=== PATIENT | male | born 1970 | race Hispanic/Latino ===

== ENCOUNTER 2023-06-22 12:05 | Inpatient (IN) | payer MEDICARE, OTHER ==
[~2023-06-22] VITALS: Ht 165.1 cm; Wt 88.0 kg
[2023-06-22] VITALS (21 sets, daily range): BP systolic 129–157; BP diastolic 57–69; PULSE 65–85; RESP 10–22; TEMP 97.8–98; O2SAT 96–100
[2023-06-22] MEDS ORDERED: ALBUTEROL/IPRATROPIUM 3 ML NEB NEB ONE (12:30)
[2023-06-22 13:18] LABS: BASOPHILS # (AUTO) 0.1 (0.0-0.1); BASOPHILS % 1.1 % (0.0-1.0); EOSINOPHILS # (AUTO) 0.2 (0.0-0.4); EOSINOPHILS % 2.7 % (0.0-6.0); HEMATOCRIT 29.2 % (38.2-49.6); LYMPHOCYTES # (AUTO) 0.9 (1.0-3.2); LYMPHOCYTES % 11.8 % (18.0-39.1); MEAN CORPUSCULAR HEMOGLOBIN 29.2 pg (28-32); MEAN CORPUSCULAR HGB CONC 30.8 g/dL (31-35); MEAN CORPUSCULAR VOLUME 94.8 fL (81-99); MONOCYTES # (AUTO) 0.5 (0.2-0.8); MONOCYTES % 7.1 % (4.4-11.3); NEUTROPHILS # (AUTO) 5.8 (2.1-6.9); NEUTROPHILS % 76.8 % (38.7-80.0); PLATELET COUNT 295 x10e3/uL (140-360); RED BLOOD COUNT 3.08 x10e6/uL (4.3-5.7); RED CELL DISTRIBUTION WIDTH 14.5 % (11.7-14.4); WHITE BLOOD COUNT 7.48 x10e3/uL (4.8-10.8)
[2023-06-22 13:36] LABS: ALBUMIN 2.5 g/dL (3.5-5.0); ALBUMIN/GLOBULIN RATIO 0.6 (0.8-2.0); ANION GAP 14.6 mmol/L (8-16); BILIRUBIN,TOTAL 0.4 mg/dL (0.2-1.2); CALCIUM 8.3 mg/dL (8.4-10.2); CREATININE, SERUM 2.96 mg/dL (0.72-1.25); TOTAL PROTEIN 6.5 g/dL (6.5-8.1)
[2023-06-22 13:37] LABS: INR 0.99; PARTIAL THROMBOPLASTIN TIME 33.2 seconds (23.8-35.5); PROTHROMBIN TIME 13.3 seconds (11.9-14.5)
[2023-06-22 13:39] LABS: POTASSIUM 5.6 mmol/L (3.5-5.1)
[2023-06-22 15:45] LABS: BILIRUBIN,URINE NEGATIVE (NEGATIVE); CLARITY,URINE HAZY (CLEAR); COLOR,URINE YELLOW (YELLOW); GLUCOSE, URINE NEGATIVE (NEGATIVE); KETONES,URINE NEGATIVE (NEGATIVE); LEUKOCYTE ESTERASE ,URINE NEGATIVE (NEGATIVE); NITRITE,URINE NEGATIVE (NEGATIVE); PH,URINE 5.5 (5 - 7); PROTEIN,URINE DIPSTICK >=300 (NEGATIVE); URINE UROBILINOGEN 0.2 mg/dL (0.2 - 1)
[2023-06-22 16:14] LABS: BACTERIA,URINE FEW /HPF; RBC,URINE 0-5 /HPF (0-5); WBC,URINE (MAN) 0-5 /HPF (0-5)
[2023-06-22 16:15] LABS: EPITHELIAL CELLS,URINE RARE /LPF
[2023-06-22] MEDS ORDERED: FUROSEMIDE INJ 10 MG/ML 4 ML VIAL IV SCH (16:15)
[2023-06-22] MEDS ORDERED: SODIUM CHLORIDE FLUSH 10 ML SYR INJ PRN (16:15)
[2023-06-22] MEDS ORDERED: ONDANSETRON HCL INJ 2MG/ML 2ML 2 MG/ML VIAL IV PRN ×2 (16:15→16:30)
[2023-06-22] MEDS ORDERED: DEXTROSE 50% SYRINGE 50 ML IV STA (16:18)
[2023-06-22] MEDS ORDERED: ALBUTEROL SULF 0.083% NEB SOLN 3 ML NEB NEB STA (16:18)
[2023-06-22] MEDS ORDERED: POLYETHYLENE GLYCOL 3350 17 GM PACK PO PRN (16:30)
[2023-06-22] MEDS ORDERED: INSULIN REGULAR, HUMAN 100 UNIT/1 ML IV ONE (16:30)
[2023-06-22] MEDS ORDERED: CALCIUM GLUC 1 G/50 ML NACL 100 ML IV ONE (16:30)
[2023-06-22] MEDS ORDERED: SODIUM BICARBONATE 8.4% INJ 50 ML SYR IV ONE (16:45)
[2023-06-22] MEDS ORDERED: SOD POLYSTYRENE SULFONATE SUSP 15 GM/60 ML BTL PO ONE (17:30)
[2023-06-22] MEDS: DOCUSATE SODIUM 100 MG CAP PO SCH (18:55)
[2023-06-22] MEDS: ACETAMINOPHEN 325 MG TAB PO PRN (18:56)
[2023-06-22] MEDS ORDERED: ACETAMINOPHEN325 M1 PO (20:38)
[2023-06-22] MEDS ORDERED: MIRALAX17 GM PO (21:00)
[2023-06-22] MEDS ORDERED: PLAVIX75 MG PO (21:00)
[2023-06-22] MEDS ORDERED: BENADRYL ITCH28.3 GM TOP (21:00)
[2023-06-22] MEDS ORDERED: LASIX40 MG PO (21:00)
[2023-06-22] MEDS ORDERED: DOXYCYCLINE HY100 MG PO (21:00)
[2023-06-22] MEDS ORDERED: [UNRECOGNIZED DRUG - OTHER] (21:00)
[2023-06-22] MEDS ORDERED: lidocaine patch TOP (21:00)
[2023-06-22] MEDS ORDERED: APLISOL5 TUB UNIT (21:00)
[2023-06-22] MEDS ORDERED: LACTULOSE20 GM/30 M PO (21:00)
[2023-06-22] MEDS ORDERED: ASPIRIN81 MG PO (21:00)
[2023-06-22] MEDS ORDERED: DOCUSATE SODIU100 MG PO (21:00)
[2023-06-22] MEDS ORDERED: AMLODIPINE BESY10 MG PO (21:00)
[2023-06-22] MEDS ORDERED: HUMALOG100 UNIT/1 (21:00)
[2023-06-22] MEDS ORDERED: COQ-10100 MG PO (21:00)
[2023-06-22] MEDS ORDERED: FERROUS FUMARA324 MG PO (21:00)
[2023-06-22] MEDS ORDERED: PENTOXIFYLLINE400 MG PO (21:00)
[2023-06-22] MEDS ORDERED: HUMULIN N100 UNIT/2 SQ (21:00)
[2023-06-22] MEDS ORDERED: CARVEDILOL12.5 MG PO (21:00)
[2023-06-22] MEDS ORDERED: DECUBI VITE CA1 EACH PO (21:00)
[2023-06-22] MEDS ORDERED: ATORVASTATIN CA10 MG PO (21:00)
[2023-06-22] MEDS ORDERED: DEXTROSE 50% SYRINGE 50 ML IV PRN (21:45)
[2023-06-22] MEDS: HEPARIN SOD (PORCINE) 5,000 UNIT/ML VIAL SC SCH (21:59)
[2023-06-22] MEDS: FUROSEMIDE INJ 10 MG/ML 4 ML VIAL IV SCH (22:01)
[2023-06-22] MEDS: INSULIN REGULAR, HUMAN 100 UNIT/1 ML SQ SCH (22:02)
[2023-06-22] MEDS ORDERED: DIPHENHYDRAMINE HCL 30 GM TUBE TOP PRN (23:45)
[2023-06-23] VITALS (42 sets, daily range): BP systolic 94–165; BP diastolic 48–111; PULSE 63–98; RESP 12–24; TEMP 97.9–98.3; O2SAT 87–100
[2023-06-23 06:35] LABS: BASOPHILS # (AUTO) 0.1 (0.0-0.1); BASOPHILS % 0.9 % (0.0-1.0); EOSINOPHILS # (AUTO) 0.2 (0.0-0.4); EOSINOPHILS % 3.6 % (0.0-6.0); HEMATOCRIT 28.4 % (38.2-49.6); HEMOGLOBIN 8.9 g/dL (14.0-18.0); LYMPHOCYTES % 16.7 % (18.0-39.1); MEAN CORPUSCULAR HEMOGLOBIN 29.1 pg (28-32); MEAN CORPUSCULAR HGB CONC 31.3 g/dL (31-35); MEAN CORPUSCULAR VOLUME 92.8 fL (81-99); MONOCYTES # (AUTO) 0.5 (0.2-0.8); MONOCYTES % 9.3 % (4.4-11.3); NEUTROPHILS % 69.2 % (38.7-80.0); PLATELET COUNT 269 x10e3/uL (140-360); RED BLOOD COUNT 3.06 x10e6/uL (4.3-5.7); RED CELL DISTRIBUTION WIDTH 14.3 % (11.7-14.4)
[2023-06-23 07:06] LABS: ALBUMIN 2.4 g/dL (3.5-5.0); ALBUMIN/GLOBULIN RATIO 0.6 (0.8-2.0); ANION GAP 14.7 mmol/L (8-16); BILIRUBIN,TOTAL 0.3 mg/dL (0.2-1.2); CALCIUM 8.4 mg/dL (8.4-10.2); CREATININE, SERUM 2.75 mg/dL (0.72-1.25); POTASSIUM 4.7 mmol/L (3.5-5.1); TOTAL PROTEIN 6.3 g/dL (6.5-8.1)
[2023-06-23 07:21] LABS: CHOL/HDL RATIO 4.5 (3.9-4.7); MAGNESIUM 1.7 MG/DL (1.3-2.1); PHOSPHORUS 5.6 MG/DL (2.3-4.7)
[2023-06-23] MEDS: INSULIN REGULAR, HUMAN 100 UNIT/1 ML SQ SCH ×4 (07:30→20:41)
[2023-06-23 07:42] LABS: THYROID STIMULATING HORMONE 2.246 uIU/mL (0.350-4.940)
[2023-06-23] MEDS: FUROSEMIDE INJ 10 MG/ML 4 ML VIAL IV SCH ×2 (08:42→20:31)
[2023-06-23] MEDS: HEPARIN SOD (PORCINE) 5,000 UNIT/ML VIAL SC SCH ×2 (08:43→21:35)
[2023-06-23] MEDS: LIDOCAINE 4% PATCH TP SCH (08:44)
[2023-06-23] MEDS: CLOPIDOGREL BISULFATE 75 MG TAB PO SCH (09:43)
[2023-06-23] MEDS: AMLODIPINE BESYLATE 5 MG TAB PO SCH (09:44)
[2023-06-23] MEDS: PENTOXIFYLLINE 400 MG TAB CR PO SCH ×2 (09:44→16:41)
[2023-06-23] MEDS: DOCUSATE SODIUM 100 MG CAP PO SCH ×2 (09:44→16:42)
[2023-06-23] MEDS: FOLIC ACID/CYANOCOB/PYRIDOXINE TAB PO SCH (09:44)
[2023-06-23] MEDS: ASPIRIN 81 MG CHEW TAB PO SCH (09:44)
[2023-06-23] MEDS: DOXYCYCLINE HYCLATE TABLET 100 MG TAB PO SCH ×2 (09:44→16:41)
[2023-06-23] MEDS: CARVEDILOL 12.5 MG TAB PO SCH ×2 (09:44→16:42)
[2023-06-23] MEDS: ASCORBIC ACID 500 MG TAB PO SCH ×2 (09:44→16:41)
[2023-06-23] MEDS: POLYETHYLENE GLYCOL 3350 17 GM PACK PO SCH (09:45)
[2023-06-23] MEDS ORDERED: ALBUTEROL/IPRATROPIUM 3 ML NEB NEB ONE (09:45)
[2023-06-23] MEDS ORDERED: ALBUTEROL/IPRATROPIUM 3 ML NEB NEB PRN (09:45)
[2023-06-23] MEDS: ACETAMINOPHEN 325 MG TAB PO PRN (09:45)
[2023-06-23] MEDS: LACTULOSE SYRUP 20 GM/30 ML UDC PO SCH ×2 (09:45→16:42)
[2023-06-23] MEDS: ATORVASTATIN 10 MG TAB PO SCH (20:31)
[2023-06-24] VITALS (33 sets, daily range): BP systolic 137–172; BP diastolic 56–77; PULSE 78–91; RESP 11–24; TEMP 98.3–99; O2SAT 99–100
[2023-06-24 06:32] LABS: BASOPHILS % 0.5 % (0.0-1.0); EOSINOPHILS # (AUTO) 0.2 (0.0-0.4); EOSINOPHILS % 3.5 % (0.0-6.0); HEMOGLOBIN 9.1 g/dL (14.0-18.0); LYMPHOCYTES % 16.6 % (18.0-39.1); MEAN CORPUSCULAR HEMOGLOBIN 29.2 pg (28-32); MEAN CORPUSCULAR HGB CONC 31.4 g/dL (31-35); MEAN CORPUSCULAR VOLUME 92.9 fL (81-99); MONOCYTES # (AUTO) 0.6 (0.2-0.8); NEUTROPHILS # (AUTO) 4.4 (2.1-6.9); NEUTROPHILS % 70.1 % (38.7-80.0); PLATELET COUNT 257 x10e3/uL (140-360); RED BLOOD COUNT 3.12 x10e6/uL (4.3-5.7); RED CELL DISTRIBUTION WIDTH 14.6 % (11.7-14.4); WHITE BLOOD COUNT 6.25 x10e3/uL (4.8-10.8)
[2023-06-24 07:04] LABS: ALBUMIN 2.3 g/dL (3.5-5.0); ALBUMIN/GLOBULIN RATIO 0.6 (0.8-2.0); ANION GAP 15.3 mmol/L (8-16); BILIRUBIN,TOTAL 0.2 mg/dL (0.2-1.2); CALCIUM 8.7 mg/dL (8.4-10.2); CREATININE, SERUM 2.81 mg/dL (0.72-1.25); POTASSIUM 4.3 mmol/L (3.5-5.1); TOTAL PROTEIN 6.2 g/dL (6.5-8.1)
[2023-06-24 07:16] LABS: FERRITIN 740.39 ng/mL (21.81-274.66)
[2023-06-24 07:29] LABS: FOLATE 11.1 ng/mL (7.0-15.4)
[2023-06-24] MEDS: INSULIN REGULAR, HUMAN 100 UNIT/1 ML SQ SCH ×4 (07:30→21:11)
[2023-06-24] MEDS: DOXYCYCLINE HYCLATE TABLET 100 MG TAB PO SCH ×2 (08:00→17:09)
[2023-06-24] MEDS: LACTULOSE SYRUP 20 GM/30 ML UDC PO SCH ×2 (08:00→16:06)
[2023-06-24] MEDS: DOCUSATE SODIUM 100 MG CAP PO SCH ×2 (08:00→16:07)
[2023-06-24] MEDS: ASPIRIN 81 MG CHEW TAB PO SCH (08:00)
[2023-06-24] MEDS: FUROSEMIDE INJ 10 MG/ML 4 ML VIAL IV SCH ×2 (08:00→21:09)
[2023-06-24] MEDS: LIDOCAINE 4% PATCH TP SCH (08:01)
[2023-06-24] MEDS: CARVEDILOL 12.5 MG TAB PO SCH ×2 (08:01→16:07)
[2023-06-24] MEDS: CLOPIDOGREL BISULFATE 75 MG TAB PO SCH (08:01)
[2023-06-24] MEDS: ASCORBIC ACID 500 MG TAB PO SCH ×2 (08:01→16:06)
[2023-06-24] MEDS: POLYETHYLENE GLYCOL 3350 17 GM PACK PO SCH (08:01)
[2023-06-24] MEDS: AMLODIPINE BESYLATE 5 MG TAB PO SCH (08:01)
[2023-06-24] MEDS: HEPARIN SOD (PORCINE) 5,000 UNIT/ML VIAL SC SCH ×2 (08:03→21:10)
[2023-06-24] MEDS: FOLIC ACID/CYANOCOB/PYRIDOXINE TAB PO SCH (08:25)
[2023-06-24] MEDS: PENTOXIFYLLINE 400 MG TAB CR PO SCH ×2 (08:25→16:06)
[2023-06-24] MEDS: HYDRALAZINE HCL 20 MG/ML VIAL IV PRN (13:35)
[2023-06-24] MEDS: EPOETIN ALFA-EPBX 10,000 UNIT/ML VIAL SC SCH (16:07)
[2023-06-24] MEDS: ATORVASTATIN 10 MG TAB PO SCH (21:09)
[2023-06-25] VITALS (19 sets, daily range): BP systolic 148–177; BP diastolic 57–75; PULSE 68–85; RESP 16–23; TEMP 97.8–98.8; O2SAT 98–100
[2023-06-25 06:12] LABS: BASOPHILS % 0.6 % (0.0-1.0); EOSINOPHILS # (AUTO) 0.3 (0.0-0.4); EOSINOPHILS % 4.3 % (0.0-6.0); HEMATOCRIT 29.2 % (38.2-49.6); HEMOGLOBIN 9.1 g/dL (14.0-18.0); LYMPHOCYTES # (AUTO) 1.2 (1.0-3.2); LYMPHOCYTES % 18.8 % (18.0-39.1); MEAN CORPUSCULAR HEMOGLOBIN 29.3 pg (28-32); MEAN CORPUSCULAR HGB CONC 31.2 g/dL (31-35); MEAN CORPUSCULAR VOLUME 93.9 fL (81-99); MONOCYTES # (AUTO) 0.5 (0.2-0.8); MONOCYTES % 8.2 % (4.4-11.3); NEUTROPHILS # (AUTO) 4.2 (2.1-6.9); NEUTROPHILS % 67.8 % (38.7-80.0); PLATELET COUNT 258 x10e3/uL (140-360); RED BLOOD COUNT 3.11 x10e6/uL (4.3-5.7); RED CELL DISTRIBUTION WIDTH 14.6 % (11.7-14.4); WHITE BLOOD COUNT 6.23 x10e3/uL (4.8-10.8)
[2023-06-25 06:23] LABS: ALBUMIN 2.2 g/dL (3.5-5.0); ALBUMIN/GLOBULIN RATIO 0.6 (0.8-2.0); ANION GAP 13.2 mmol/L (8-16); BILIRUBIN,TOTAL 0.3 mg/dL (0.2-1.2); CALCIUM 8.4 mg/dL (8.4-10.2); CREATININE, SERUM 2.86 mg/dL (0.72-1.25); POTASSIUM 4.2 mmol/L (3.5-5.1); TOTAL PROTEIN 6.2 g/dL (6.5-8.1)
[2023-06-25] MEDS: INSULIN REGULAR, HUMAN 100 UNIT/1 ML SQ SCH ×4 (08:23→21:07)
[2023-06-25] MEDS: HEPARIN SOD (PORCINE) 5,000 UNIT/ML VIAL SC SCH ×2 (08:24→21:05)
[2023-06-25] MEDS: ASPIRIN 81 MG CHEW TAB PO SCH (08:26)
[2023-06-25] MEDS: DOXYCYCLINE HYCLATE TABLET 100 MG TAB PO SCH ×2 (08:26→15:51)
[2023-06-25] MEDS: POLYETHYLENE GLYCOL 3350 17 GM PACK PO SCH (08:26)
[2023-06-25] MEDS: LIDOCAINE 4% PATCH TP SCH (08:26)
[2023-06-25] MEDS: AMLODIPINE BESYLATE 5 MG TAB PO SCH (08:26)
[2023-06-25] MEDS: LACTULOSE SYRUP 20 GM/30 ML UDC PO SCH ×2 (08:26→15:52)
[2023-06-25] MEDS: FOLIC ACID/CYANOCOB/PYRIDOXINE TAB PO SCH (08:26)
[2023-06-25] MEDS: CARVEDILOL 12.5 MG TAB PO SCH ×2 (08:27→15:52)
[2023-06-25] MEDS: DOCUSATE SODIUM 100 MG CAP PO SCH ×2 (08:27→15:51)
[2023-06-25] MEDS: CLOPIDOGREL BISULFATE 75 MG TAB PO SCH (08:27)
[2023-06-25] MEDS: PENTOXIFYLLINE 400 MG TAB CR PO SCH ×2 (08:27→15:54)
[2023-06-25] MEDS: ASCORBIC ACID 500 MG TAB PO SCH ×2 (08:27→15:51)
[2023-06-25] MEDS: FUROSEMIDE INJ 10 MG/ML 4 ML VIAL IV SCH ×2 (08:28→21:10)
[2023-06-25] MEDS: SODIUM FERRIC GLUCONATE COMPLX 125 MG in SODIUM CHLORIDE 0.9% 100 ML IV SCH (08:57)
[2023-06-25] MEDS: HYDRALAZINE HCL 20 MG/ML VIAL IV PRN (15:52)
[2023-06-25] MEDS: ATORVASTATIN 10 MG TAB PO SCH (21:11)
[2023-06-26] VITALS (12 sets, daily range): BP systolic 152–164; BP diastolic 59–72; PULSE 68–82; RESP 16–20; TEMP 98.2–99.1; O2SAT 97–100
[2023-06-26] MEDS: LACTULOSE SYRUP 20 GM/30 ML UDC PO SCH ×2 (09:53→17:21)
[2023-06-26] MEDS: POLYETHYLENE GLYCOL 3350 17 GM PACK PO SCH (09:53)
[2023-06-26] MEDS: DOXYCYCLINE HYCLATE TABLET 100 MG TAB PO SCH ×2 (09:53→17:21)
[2023-06-26] MEDS: CARVEDILOL 12.5 MG TAB PO SCH ×2 (09:53→17:21)
[2023-06-26] MEDS: ASCORBIC ACID 500 MG TAB PO SCH ×2 (09:54→17:21)
[2023-06-26] MEDS: LIDOCAINE 4% PATCH TP SCH (09:54)
[2023-06-26] MEDS: ASPIRIN 81 MG CHEW TAB PO SCH (09:54)
[2023-06-26] MEDS: AMLODIPINE BESYLATE 5 MG TAB PO SCH (09:54)
[2023-06-26] MEDS: FOLIC ACID/CYANOCOB/PYRIDOXINE TAB PO SCH (09:54)
[2023-06-26] MEDS: DOCUSATE SODIUM 100 MG CAP PO SCH ×2 (09:54→17:21)
[2023-06-26] MEDS: PENTOXIFYLLINE 400 MG TAB CR PO SCH ×2 (09:54→17:21)
[2023-06-26] MEDS: CLOPIDOGREL BISULFATE 75 MG TAB PO SCH (09:54)
[2023-06-26] MEDS: FUROSEMIDE INJ 10 MG/ML 4 ML VIAL IV SCH ×2 (09:57→20:42)
[2023-06-26 10:20] LABS: BASOPHILS % 0.4 % (0.0-1.0); EOSINOPHILS # (AUTO) 0.2 (0.0-0.4); HEMATOCRIT 30.3 % (38.2-49.6); HEMOGLOBIN 9.6 g/dL (14.0-18.0); LYMPHOCYTES % 18.1 % (18.0-39.1); MEAN CORPUSCULAR HEMOGLOBIN 29.3 pg (28-32); MEAN CORPUSCULAR HGB CONC 31.7 g/dL (31-35); MEAN CORPUSCULAR VOLUME 92.4 fL (81-99); MONOCYTES # (AUTO) 0.3 (0.2-0.8); MONOCYTES % 6.5 % (4.4-11.3); NEUTROPHILS # (AUTO) 3.7 (2.1-6.9); NEUTROPHILS % 70.8 % (38.7-80.0); PLATELET COUNT 233 x10e3/uL (140-360); RED BLOOD COUNT 3.28 x10e6/uL (4.3-5.7); RED CELL DISTRIBUTION WIDTH 14.3 % (11.7-14.4); WHITE BLOOD COUNT 5.25 x10e3/uL (4.8-10.8)
[2023-06-26] MEDS: HEPARIN SOD (PORCINE) 5,000 UNIT/ML VIAL SC SCH ×2 (10:21→21:12)
[2023-06-26] MEDS: INSULIN REGULAR, HUMAN 100 UNIT/1 ML SQ SCH ×4 (10:28→20:23)
[2023-06-26] MEDS ORDERED: SODIUM CHLORIDE 0.9% 250ML 250 ML ONE (10:35)
[2023-06-26] MEDS: SODIUM FERRIC GLUCONATE COMPLX 125 MG in SODIUM CHLORIDE 0.9% 100 ML IV SCH (10:38)
[2023-06-26 10:41] LABS: ANION GAP 14.2 mmol/L (8-16); CALCIUM 8.4 mg/dL (8.4-10.2); CREATININE, SERUM 2.74 mg/dL (0.72-1.25); POTASSIUM 4.2 mmol/L (3.5-5.1)
[2023-06-26] MEDS: HYDRALAZINE HCL 20 MG/ML VIAL IV PRN (14:48)
[2023-06-26] MEDS: ATORVASTATIN 10 MG TAB PO SCH (20:41)
[2023-06-27] VITALS (8 sets, daily range): BP systolic 141–182; BP diastolic 61–70; PULSE 74–84; RESP 16–18; TEMP 98–98.7; O2SAT 96–100
[2023-06-27 05:55] LABS: BASOPHILS # (AUTO) 0.1 (0.0-0.1); BASOPHILS % 1.1 % (0.0-1.0); EOSINOPHILS # (AUTO) 0.4 (0.0-0.4); EOSINOPHILS % 5.9 % (0.0-6.0); HEMATOCRIT 30.1 % (38.2-49.6); HEMOGLOBIN 9.3 g/dL (14.0-18.0); LYMPHOCYTES # (AUTO) 1.2 (1.0-3.2); LYMPHOCYTES % 19.4 % (18.0-39.1); MEAN CORPUSCULAR HEMOGLOBIN 29.1 pg (28-32); MEAN CORPUSCULAR HGB CONC 30.9 g/dL (31-35); MEAN CORPUSCULAR VOLUME 94.1 fL (81-99); MONOCYTES # (AUTO) 0.5 (0.2-0.8); MONOCYTES % 8.3 % (4.4-11.3); PLATELET COUNT 226 x10e3/uL (140-360); RED CELL DISTRIBUTION WIDTH 13.9 % (11.7-14.4); WHITE BLOOD COUNT 6.13 x10e3/uL (4.8-10.8)
[2023-06-27 06:15] LABS: CALCIUM 8.5 mg/dL (8.4-10.2); CREATININE, SERUM 2.85 mg/dL (0.72-1.25)
[2023-06-27] MEDS: INSULIN REGULAR, HUMAN 100 UNIT/1 ML SQ SCH ×4 (07:30→21:00)
[2023-06-27] MEDS: HEPARIN SOD (PORCINE) 5,000 UNIT/ML VIAL SC SCH ×2 (09:00→22:03)
[2023-06-27] MEDS: LACTULOSE SYRUP 20 GM/30 ML UDC PO SCH ×2 (09:00→17:27)
[2023-06-27] MEDS: ASCORBIC ACID 500 MG TAB PO SCH ×2 (09:00→17:27)
[2023-06-27] MEDS: PENTOXIFYLLINE 400 MG TAB CR PO SCH ×2 (09:00→17:27)
[2023-06-27] MEDS: DOXYCYCLINE HYCLATE TABLET 100 MG TAB PO SCH ×2 (09:00→17:27)
[2023-06-27] MEDS: DOCUSATE SODIUM 100 MG CAP PO SCH ×2 (09:00→17:26)
[2023-06-27] MEDS: POLYETHYLENE GLYCOL 3350 17 GM PACK PO SCH (09:00)
[2023-06-27] MEDS: CLOPIDOGREL BISULFATE 75 MG TAB PO SCH (09:00)
[2023-06-27] MEDS: AMLODIPINE BESYLATE 5 MG TAB PO SCH (09:00)
[2023-06-27] MEDS: CARVEDILOL 12.5 MG TAB PO SCH ×2 (09:00→17:26)
[2023-06-27] MEDS: FOLIC ACID/CYANOCOB/PYRIDOXINE TAB PO SCH (09:00)
[2023-06-27] MEDS: LIDOCAINE 4% PATCH TP SCH (09:00)
[2023-06-27] MEDS: FUROSEMIDE INJ 10 MG/ML 4 ML VIAL IV SCH ×2 (09:00→21:48)
[2023-06-27] MEDS: ASPIRIN 81 MG CHEW TAB PO SCH (09:00)
[2023-06-27] MEDS: SODIUM FERRIC GLUCONATE COMPLX 125 MG in SODIUM CHLORIDE 0.9% 100 ML IV SCH (10:00)
[2023-06-27] MEDS ORDERED: ONDANSETRON HCL 4 MG ORAL DISINTEGRATING TAB PO PRN (14:30)
[2023-06-27] MEDS: EPOETIN ALFA-EPBX 10,000 UNIT/ML VIAL SC SCH (17:27)
[2023-06-27] MEDS: ACETAMINOPHEN 325 MG TAB PO PRN (21:47)
[2023-06-27] MEDS: ATORVASTATIN 10 MG TAB PO SCH (21:48)
[2023-06-28] VITALS (9 sets, daily range): BP systolic 151–182; BP diastolic 57–69; PULSE 68–85; RESP 16–19; TEMP 97.7–98.7; O2SAT 94–100
[2023-06-28 06:23] LABS: ANION GAP 14.8 mmol/L (8-16); CALCIUM 8.6 mg/dL (8.4-10.2); CREATININE, SERUM 2.76 mg/dL (0.72-1.25); POTASSIUM 3.8 mmol/L (3.5-5.1)
[2023-06-28] MEDS: INSULIN REGULAR, HUMAN 100 UNIT/1 ML SQ SCH ×4 (07:30→21:18)
[2023-06-28] MEDS: ASCORBIC ACID 500 MG TAB PO SCH ×2 (09:15→17:36)
[2023-06-28] MEDS: LIDOCAINE 4% PATCH TP SCH (09:15)
[2023-06-28] MEDS: AMLODIPINE BESYLATE 5 MG TAB PO SCH (09:16)
[2023-06-28] MEDS: FUROSEMIDE INJ 10 MG/ML 4 ML VIAL IV SCH (09:16)
[2023-06-28] MEDS: CARVEDILOL 12.5 MG TAB PO SCH ×2 (09:16→17:36)
[2023-06-28] MEDS: PENTOXIFYLLINE 400 MG TAB CR PO SCH ×2 (09:16→17:36)
[2023-06-28] MEDS: FOLIC ACID/CYANOCOB/PYRIDOXINE TAB PO SCH (09:16)
[2023-06-28] MEDS: ASPIRIN 81 MG CHEW TAB PO SCH (09:16)
[2023-06-28] MEDS: LACTULOSE SYRUP 20 GM/30 ML UDC PO SCH ×2 (09:17→17:36)
[2023-06-28] MEDS: CLOPIDOGREL BISULFATE 75 MG TAB PO SCH (09:17)
[2023-06-28] MEDS: DOCUSATE SODIUM 100 MG CAP PO SCH ×2 (09:17→17:36)
[2023-06-28] MEDS: HEPARIN SOD (PORCINE) 5,000 UNIT/ML VIAL SC SCH ×2 (09:17→21:18)
[2023-06-28] MEDS: POLYETHYLENE GLYCOL 3350 17 GM PACK PO SCH (09:17)
[2023-06-28] MEDS: SODIUM FERRIC GLUCONATE COMPLX 125 MG in SODIUM CHLORIDE 0.9% 100 ML IV SCH (12:00)
[2023-06-28] MEDS: DOXYCYCLINE HYCLATE TABLET 100 MG TAB PO SCH ×2 (12:00→17:36)
[2023-06-28] MEDS: ACETAMINOPHEN 325 MG TAB PO PRN (12:03)
[2023-06-28] MEDS: FUROSEMIDE 40 MG TAB PO SCH (17:39)
[2023-06-28] MEDS: ATORVASTATIN 10 MG TAB PO SCH (21:09)
[2023-06-29] VITALS (8 sets, daily range): BP systolic 147–165; BP diastolic 52–72; PULSE 69–98; RESP 16–22; TEMP 97.4–98.6; O2SAT 92–99
[2023-06-29] MEDS: FUROSEMIDE 40 MG TAB PO SCH (05:25)
[2023-06-29 06:22] LABS: ANION GAP 14.8 mmol/L (8-16); CALCIUM 8.3 mg/dL (8.4-10.2); CREATININE, SERUM 3.05 mg/dL (0.72-1.25); POTASSIUM 3.8 mmol/L (3.5-5.1)
[2023-06-29] MEDS: INSULIN REGULAR, HUMAN 100 UNIT/1 ML SQ SCH ×4 (07:30→22:26)
[2023-06-29] MEDS: DOCUSATE SODIUM 100 MG CAP PO SCH ×2 (09:00→17:07)
[2023-06-29] MEDS: POLYETHYLENE GLYCOL 3350 17 GM PACK PO SCH (09:00)
[2023-06-29] MEDS: ASPIRIN 81 MG CHEW TAB PO SCH (09:38)
[2023-06-29] MEDS: CARVEDILOL 12.5 MG TAB PO SCH ×2 (09:40→17:13)
[2023-06-29] MEDS: CLOPIDOGREL BISULFATE 75 MG TAB PO SCH (09:41)
[2023-06-29] MEDS: LACTULOSE SYRUP 20 GM/30 ML UDC PO SCH ×2 (09:41→17:07)
[2023-06-29] MEDS: AMLODIPINE BESYLATE 5 MG TAB PO SCH (09:41)
[2023-06-29] MEDS: FOLIC ACID/CYANOCOB/PYRIDOXINE TAB PO SCH (09:41)
[2023-06-29] MEDS: PENTOXIFYLLINE 400 MG TAB CR PO SCH ×2 (09:42→17:08)
[2023-06-29] MEDS: DOXYCYCLINE HYCLATE TABLET 100 MG TAB PO SCH ×2 (09:42→17:07)
[2023-06-29] MEDS: ASCORBIC ACID 500 MG TAB PO SCH ×2 (09:42→17:08)
[2023-06-29] MEDS: LIDOCAINE 4% PATCH TP SCH (09:43)
[2023-06-29] MEDS: HEPARIN SOD (PORCINE) 5,000 UNIT/ML VIAL SC SCH (09:44)
[2023-06-29] MEDS: SODIUM FERRIC GLUCONATE COMPLX 125 MG in SODIUM CHLORIDE 0.9% 100 ML IV SCH (09:45)
[2023-06-29] MEDS: EPOETIN ALFA-EPBX 10,000 UNIT/ML VIAL SC SCH (17:11)
[2023-06-29] MEDS: ATORVASTATIN 10 MG TAB PO SCH (22:21)
[2023-06-30] VITALS (8 sets, daily range): BP systolic 140–161; BP diastolic 52–72; PULSE 75–84; RESP 16–20; TEMP 97.9–99; O2SAT 95–100
[2023-06-30 06:01] LABS: BASOPHILS % 0.6 % (0.0-1.0); EOSINOPHILS # (AUTO) 0.3 (0.0-0.4); EOSINOPHILS % 4.2 % (0.0-6.0); HEMATOCRIT 31.9 % (38.2-49.6); HEMOGLOBIN 10.2 g/dL (14.0-18.0); LYMPHOCYTES # (AUTO) 1.1 (1.0-3.2); MEAN CORPUSCULAR HEMOGLOBIN 29.2 pg (28-32); MEAN CORPUSCULAR VOLUME 91.4 fL (81-99); MONOCYTES # (AUTO) 0.5 (0.2-0.8); NEUTROPHILS # (AUTO) 4.7 (2.1-6.9); NEUTROPHILS % 70.8 % (38.7-80.0); PLATELET COUNT 209 x10e3/uL (140-360); RED BLOOD COUNT 3.49 x10e6/uL (4.3-5.7); RED CELL DISTRIBUTION WIDTH 14.4 % (11.7-14.4); WHITE BLOOD COUNT 6.69 x10e3/uL (4.8-10.8)
[2023-06-30] MEDS: INSULIN REGULAR, HUMAN 100 UNIT/1 ML SQ SCH ×4 (07:30→21:00)
[2023-06-30] MEDS: DOCUSATE SODIUM 100 MG CAP PO SCH ×2 (09:00→17:00)
[2023-06-30] MEDS: POLYETHYLENE GLYCOL 3350 17 GM PACK PO SCH (09:00)
[2023-06-30] MEDS: LIDOCAINE 4% PATCH TP SCH (09:05)
[2023-06-30] MEDS: AMLODIPINE BESYLATE 5 MG TAB PO SCH (09:05)
[2023-06-30] MEDS: DOXYCYCLINE HYCLATE TABLET 100 MG TAB PO SCH (09:06)
[2023-06-30] MEDS: FOLIC ACID/CYANOCOB/PYRIDOXINE TAB PO SCH (09:06)
[2023-06-30] MEDS: ASCORBIC ACID 500 MG TAB PO SCH ×2 (09:06→17:47)
[2023-06-30] MEDS: CLOPIDOGREL BISULFATE 75 MG TAB PO SCH (09:06)
[2023-06-30] MEDS: ASPIRIN 81 MG CHEW TAB PO SCH (09:06)
[2023-06-30] MEDS: LACTULOSE SYRUP 20 GM/30 ML UDC PO SCH (09:07)
[2023-06-30] MEDS: CARVEDILOL 12.5 MG TAB PO SCH ×2 (09:07→17:47)
[2023-06-30] MEDS: PENTOXIFYLLINE 400 MG TAB CR PO SCH ×2 (09:08→17:48)
[2023-06-30] MEDS: HYDRALAZINE HCL 20 MG/ML VIAL IV PRN (13:41)
[2023-06-30] MEDS ORDERED: LACTULOSE SYRUP 20 GM/30 ML UDC PO PRN (18:00)
[2023-06-30] MEDS: ATORVASTATIN 10 MG TAB PO SCH (22:01)
[2023-07-01] VITALS (11 sets, daily range): BP systolic 144–164; BP diastolic 62–75; PULSE 71–80; RESP 16–18; TEMP 97.1–98.5; O2SAT 95–98
[2023-07-01] MEDS: INSULIN REGULAR, HUMAN 100 UNIT/1 ML SQ SCH ×4 (07:30→21:05)
[2023-07-01] MEDS: ASPIRIN 81 MG CHEW TAB PO SCH (09:29)
[2023-07-01] MEDS: FOLIC ACID/CYANOCOB/PYRIDOXINE TAB PO SCH (09:29)
[2023-07-01] MEDS: DOCUSATE SODIUM 100 MG CAP PO SCH ×2 (09:29→20:55)
[2023-07-01] MEDS: PENTOXIFYLLINE 400 MG TAB CR PO SCH ×2 (09:29→20:55)
[2023-07-01] MEDS: CLOPIDOGREL BISULFATE 75 MG TAB PO SCH (09:29)
[2023-07-01] MEDS: LIDOCAINE 4% PATCH TP SCH (09:30)
[2023-07-01] MEDS: AMLODIPINE BESYLATE 5 MG TAB PO SCH (09:30)
[2023-07-01] MEDS: POLYETHYLENE GLYCOL 3350 17 GM PACK PO SCH (09:30)
[2023-07-01] MEDS: ASCORBIC ACID 500 MG TAB PO SCH ×2 (09:30→20:55)
[2023-07-01] MEDS: CARVEDILOL 12.5 MG TAB PO SCH ×2 (09:30→20:56)
[2023-07-01] MEDS: ATORVASTATIN 10 MG TAB PO SCH (20:56)
== END 2023-07-01 22:05 | DRG 291 ==
LOC: ER 12:19 → ERHOLD 16:15 → ICU 20:04 → MED/SURG3 06-25 12:45
PROVIDERS: ADMIT Internal Medicine; ATTEND Internal Medicine
PROC: 4A043R1 Measurement of Venous Saturation, Peripheral, Percutaneous Approach (ICD-10-PCS; principal; 2023-06-22)
DX: I13.0 Hypertensive heart and chronic kidney disease with heart failure and stage 1 through stage 4 chronic kidney disease, or unspecified chronic kidney disease (principal); I50.33 Acute on chronic diastolic (congestive) heart failure; J96.01 Acute respiratory failure with hypoxia; J18.9 Pneumonia, unspecified organism; N17.9 Acute kidney failure, unspecified; E87.1 Hypo-osmolality and hyponatremia; N18.4 Chronic kidney disease, stage 4 (severe); E11.22 Type 2 diabetes mellitus with diabetic chronic kidney disease; Z66 Do not resuscitate; E11.65 Type 2 diabetes mellitus with hyperglycemia; E11.51 Type 2 diabetes mellitus with diabetic peripheral angiopathy without gangrene; D50.9 Iron deficiency anemia, unspecified; R26.2 Difficulty in walking, not elsewhere classified; E66.9 Obesity, unspecified; E83.51 Hypocalcemia; R31.29 Other microscopic hematuria; R33.9 Retention of urine, unspecified; D63.8 Anemia in other chronic diseases classified elsewhere; Z89.512 Acquired absence of left leg below knee; K80.20 Calculus of gallbladder without cholecystitis without obstruction; Z89.511 Acquired absence of right leg below knee; Z79.4 Long term (current) use of insulin; E87.5 Hyperkalemia; Z86.73 Personal history of transient ischemic attack (TIA), and cerebral infarction without residual deficits; R60.1 Generalized edema; Z20.822 Contact with and (suspected) exposure to COVID-19; Z68.32 Body mass index [BMI] 32.0-32.9, adult
CPT/HCPCS: 36415; 71045; 71250; 74176; 80048; 80053; 80061; 81001; 82607; 82728; 82746; 82948; 83036; 83540; 83605; 83735; 83880; 84100; 84439; 84443; 84466; 85025; 85045; 85610; 85730; 87040; 87086; 93005; 93306; 94640; 94799; 96372; 99252; 99285; J1644; J1940; J2916; J7050; J7799; U0002

== ENCOUNTER 2024-09-28 09:43 | Emergency (ER) | payer MEDICAID, OTHER ==
[~2024-09-28] VITALS: Ht 165.1 cm; Wt 88.0 kg
[~2024-09-28 09:43] MED LIST: ACETAMINOPHEN325 M1 PO; AMLODIPINE BESY10 MG PO; APLISOL5 TUB UNIT; ASPIRIN81 MG PO; ATORVASTATIN CA10 MG PO; BENADRYL ITCH28.3 GM TOP; CARVEDILOL12.5 MG PO; COQ-10100 MG PO; DECUBI VITE CA1 EACH PO; DOCUSATE SODIU100 MG PO; DOXYCYCLINE HY100 MG PO; FERROUS FUMARA324 MG PO; HUMALOG100 UNIT/1; HUMULIN N100 UNIT/2 SQ; LACTULOSE20 GM/30 M PO; LASIX40 MG PO; MIRALAX17 GM PO; PENTOXIFYLLINE400 MG PO; PLAVIX75 MG PO; [UNRECOGNIZED DRUG - OTHER]; lidocaine patch TOP
[2024-09-28 10:47] LABS: BASOPHILS # (AUTO) 0.1 (0.0-0.1); BASOPHILS % 0.7 % (0.0-1.0); EOSINOPHILS # (AUTO) 0.3 (0.0-0.4); EOSINOPHILS % 3.3 % (0.0-6.0); HEMATOCRIT 33.1 % (38.2-49.6); HEMOGLOBIN 11.4 g/dL (14.0-18.0); LYMPHOCYTES % 12.8 % (18.0-39.1); MEAN CORPUSCULAR HEMOGLOBIN 32.6 pg (28-32); MEAN CORPUSCULAR HGB CONC 34.4 g/dL (31-35); MEAN CORPUSCULAR VOLUME 94.6 fL (81-99); MONOCYTES # (AUTO) 0.5 (0.2-0.8); MONOCYTES % 6.8 % (4.4-11.3); NEUTROPHILS # (AUTO) 5.8 (2.1-6.9); NEUTROPHILS % 76.1 % (38.7-80.0); PLATELET COUNT 218 x10e3/uL (140-360); RED CELL DISTRIBUTION WIDTH 13.1 % (11.7-14.4); WHITE BLOOD COUNT 7.65 x10e3/uL (4.8-10.8)
[2024-09-28 12:00] LABS: ALBUMIN 2.8 g/dL (3.5-5.0); ALBUMIN/GLOBULIN RATIO 0.7 (0.8-2.0); ANION GAP 14.7 mmol/L (8-16); BILIRUBIN,TOTAL 0.4 mg/dL (0.2-1.2); CALCIUM 8.6 mg/dL (8.4-10.2); CREATININE, SERUM 4.42 mg/dL (0.72-1.25); POTASSIUM 3.7 mmol/L (3.5-5.1); TOTAL PROTEIN 6.7 g/dL (6.5-8.1)
[2024-09-28 14:43] VITALS: PULSE 78; RESP 18; TEMP 97.1
[2024-09-28 15:06] VITALS: BP 134/87; PULSE 79; RESP 18; TEMP 97.3; O2SAT 99
== END 2024-09-28 15:10 | disposition home or self-care (01) ==
LOC: ER 09:48
DX: R55 Syncope and collapse (principal); I12.0 Hypertensive chronic kidney disease with stage 5 chronic kidney disease or end stage renal disease; E11.22 Type 2 diabetes mellitus with diabetic chronic kidney disease; E11.65 Type 2 diabetes mellitus with hyperglycemia; N18.6 End stage renal disease; Z99.2 Dependence on renal dialysis; Z89.512 Acquired absence of left leg below knee; Z89.511 Acquired absence of right leg below knee; R94.31 Abnormal electrocardiogram [ECG] [EKG]
CPT/HCPCS: 36415; 71045; 80053; 83880; 84484; 85025; 93005; 99284